=== PATIENT | male | born 1995 | race Caucasian/White ===

== ENCOUNTER 2017-07-28 21:00 | Emergency (ER) | payer OTHER ==
[~2017-07-28] VITALS: Ht 165.1 cm; Wt 59.0 kg
[~2017-07-28 21:00] MED LIST: IBUPROFEN 600600 M1 PO; NOHOMEMEDICATIONS
[2017-07-28] MEDS ORDERED: DICLOFENAC SODI75 MG PO (21:35)
== END 2017-07-28 21:48 | disposition home or self-care (01) ==
LOC: ER 21:00
DX: S63.614A Unspecified sprain of right ring finger, initial encounter (principal); F17.210 Nicotine dependence, cigarettes, uncomplicated; W22.01XA Walked into wall, initial encounter; Y93.89 Activity, other specified; Y92.89 Other specified places as the place of occurrence of the external cause; Y99.8 Other external cause status